=== PATIENT | male | born 1985 | race Caucasian/White ===

== ENCOUNTER 2018-11-19 22:27 | Emergency (ER) | payer SELFPAY ==
[2018-11-19] MEDS ORDERED: Sodium Chloride 0.9% 2.5 ML Syringe FLUSH PRN (22:29)
[2018-11-19] MEDS ORDERED: Sodium Chloride 0.9% 10 ML Syringe FLUSH PRN (22:29)
--- NOTE | 2018-11-19 22:32 | EDM.PDOC ---
ED HPI GENERAL MEDICAL PROBLEM - General Stated Complaint: PT HURT LT LEG Time Seen by Provider: 11/19/18 22:29 Source of Information: Reports: Patient History Limitations: Reports: No Limitations - History of Present Illness INITIAL COMMENTS - FREE TEXT/NARRATIVE: HISTORY AND PHYSICAL: History of present illness: Patient is a 32-year-old male who presents to the emergency room today with complaints of left ankle pain. He states prior to arrival he misstepped and and fell to the ground. Upon arrival there is noted to be an obvious deformity of the left ankle. He denies hitting his head or having any loss of consciousness. He reports that he has fractured this ankle previously Patient denies any fever , chills, headache, change in vision, syncope or near syncope. Denies any chest pain, back pain, shortness of breath or cough. Denies any GI or symptoms. Patient has been eating and drinking appropriately. Last ate or drank around 6 PM. Review of systems: As per history of present illness and below otherwise all systems reviewed and negative. Past medical history: As per history of present illness and as reviewed below otherwise noncontributory. Surgical history: As per history of present illness and as reviewed below otherwise noncontributory. Social history: See social history for further information Family history: As per history of present illness and as reviewed below otherwise noncontributory. Physical exam: General: Well developed and well nourished 32-year-old male. Alert and oriented. Nontoxic appearing and no acute distress. HEENT: Atraumatic, normocephalic, pupils equal and reactive bilaterally, negative for conjunctival pallor or scleral icterus, mucous membranes moist, trachea midline. No drooling or trismus noted. No meningeal signs. No hot potato voice noted. Lungs: Clear to auscultation, breath sounds equal bilaterally, chest nontender. Heart: S1S2, regular rate and rhythm without overt murmur Abdomen: Soft, nondistended, nontender. Negative for masses or hepatosplenomegaly. Negative for costovertebral tenderness. Pelvis: Stable nontender. C-spine/Back: No pinpoint vertebral tenderness upon palpation. No crepitus, step -offs or obvious deformities. Denies any urinary or fecal incontinence. Denies any numbness, tingling or saddle paresthesia. Skin: Abrasion noted to the medial left ankle. Otherwise skin is intact, warm, dry. No lesions or rashes noted. Extremities: Limited range of motion of the left ankle, unable to flex or extend. Strong pedal pulse. Capillary refill less than 3 seconds. Otherwise moves all other extremities per self without difficulty or deficits, negative for cords or calf pain. Neurovascular unremarkable. Neuro: Awake, alert, oriented. Cranial nerves II through XII unremarkable. Cerebellum unremarkable. Motor and sensory unremarkable throughout. Exam nonfocal. Notes: X-ray shows Comminuted, displaced fractures of the medial and lateral malleoli are noted. Lateral subluxation of the talar dome with the medial malleolar fragment is seen. There are several punctate density seen along the lateral distal calf. Dr Pradhan, [facility] Orthopedic provider, was consulted on this case. He states that this patient should have surgery right away in the morning. Patient will be transferred tonight and admitted through the emergency room. Dr. Ennis , ER physician was informed of this patient and is agreeable. Two-view fiberglass splint was applied. Patient continues to have strong pedal pulse post application. Vital signs remain stable. Patient was made aware of this and is agreeable to plan of care. Diagnostics: Ankle x-ray Therapeutics: NS, Morphine, posterior splint Impression: Comminuted displaced fracture of the medial and lateral malleoli, left Plan: Transferred to [facility] in [place] via ground EMS Definitive disposition and diagnosis as appropriate pending reevaluation and review of above. left ankle Pain Score (Numeric/FACES): 10 - Related Data Allergies Allergy/AdvReac Type Severity Reaction Status Date / Time No Known Allergies Allergy Verified 11/19/18 22:37 Home Meds: Home Meds . [No Known Home Meds] 11/19/18 [History] Review of Systems - Review of Systems Review Of Systems: ROS reveals no pertinent complaints other than HPI. ED EXAM, GENERAL - Physical Exam Exam: See Below (See dictation) Course - Vital Signs Last Recorded V/S: Last Vital Signs Temp 97 F 11/19/18 22:32 Pulse 107 H 11/19/18 22:32 Resp 18 11/19/18 22:32 BP 132/88 11/19/18 22:32 Pulse Ox 97 11/19/18 22:32 - Orders/Labs/Meds Orders: Active Orders 24 hr Category Date Time Status Vaccines to be Administered [RC] PER UNIT ROUTINE Care 11/19/18 22:57 Active Sodium Chloride 0.9% [Normal Saline] 1,000 ml Med 11/19/18 22:45 Active IV STAT Sodium Chloride 0.9% [Saline Flush] Med 11/19/18 22:29 Active 10 ml FLUSH ASDIRECTED PRN Sodium Chloride 0.9% [Saline Flush] Med 11/19/18 22:29 Active 2.5 ml FLUSH ASDIRECTED PRN Saline Lock Insert [OM.PC] Stat Oth 11/19/18 22:29 Ordered Medication Orders Sodium Chloride (Normal Saline) 1,000 mls @ 150 mls/hr IV STAT OLGA Last Admin: 11/19/18 22:53 Dose: 150 mls/hr Sodium Chloride (Saline Flush) 10 ml FLUSH ASDIRECTED PRN PRN Reason: Keep Vein Open Last Admin: 11/19/18 22:54 Dose: 10 ml Sodium Chloride (Saline Flush) 2.5 ml FLUSH ASDIRECTED PRN PRN Reason: Keep Vein Open Last Admin: 11/19/18 22:55 Dose: 2.5 ml Meds: Medications Generic Name Dose Route Start Last Admin Trade Name Freq PRN Reason Stop Dose Admin Sodium Chloride 1,000 mls @ 150 mls/hr 11/19/18 22:45 11/19/18 22:53 Normal Saline IV 150 mls/hr STAT OLGA Administration Sodium Chloride 10 ml 11/19/18 22:29 11/19/18 22:54 Saline Flush FLUSH 10 ml ASDIRECTED PRN Administration Keep Vein Open Sodium Chloride 2.5 ml 11/19/18 22:29 11/19/18 22:55 Saline Flush FLUSH 2.5 ml ASDIRECTED PRN Administration Keep Vein Open Discontinued Medications Generic Name Dose Route Start Last Admin Trade Name Freq PRN Reason Stop Dose Admin Diphtheria/Tetanus/Acell Pertussis 0.5 ml 11/19/18 22:57 Adacel IM 11/19/18 22:58 .ONCE ONE Morphine Sulfate 4 mg 11/19/18 22:35 11/19/18 22:54 Morphine IVPUSH 11/19/18 22:36 4 mg ONETIME ONE Administration Departure - Departure Time of Disposition: 23:22 Disposition: DC/Tfer to [facility] 02 Clinical Impression: Bimalleolar ankle fracture Qualifiers: Encounter type: initial encounter Fracture type: closed Laterality: left Qualified Code(s): S82.842A - Displaced bimalleolar fracture of left lower leg, initial encounter for closed fracture - Discharge Information Referrals: PCP,None [Primary Care Provider] - - My Orders Last 24 Hours: My Active Orders 11/19/18 22:29 Sodium Chloride 0.9% [Saline Flush] 10 ml FLUSH ASDIRECTED PRN Sodium Chloride 0.9% [Saline Flush] 2.5 ml FLUSH ASDIRECTED PRN Saline Lock Insert [OM.PC] Stat 11/19/18 22:45 Sodium Chloride 0.9% [Normal Saline] 1,000 ml IV STAT 11/19/18 22:57 Vaccines to be Administered [RC] PER UNIT ROUTINE - Assessment/Plan Last 24 Hours: My Active Orders 11/19/18 22:29 Sodium Chloride 0.9% [Saline Flush] 10 ml FLUSH ASDIRECTED PRN Sodium Chloride 0.9% [Saline Flush] 2.5 ml FLUSH ASDIRECTED PRN Saline Lock Insert [OM.PC] Stat 11/19/18 22:45 Sodium Chloride 0.9% [Normal Saline] 1,000 ml IV STAT 11/19/18 22:57 Vaccines to be Administered [RC] PER UNIT ROUTINE
[2018-11-19] MEDS ORDERED: Morphine 4 MG/ML Syringe IVPUSH ONE (22:35)
[2018-11-19] MEDS ORDERED: Sodium Chloride 0.9% 1,000 ML IV SCH (22:45)
[2018-11-19] MEDS ORDERED: Diphtheria,Pertussis(Acell),Tetanus Vaccine 0.5 ML Syringe IM ONE (22:57)
--- NOTE | 2018-11-19 23:09 | CR ---
INDICATION: Ankle injury TECHNIQUE: Ankle radiograph 4 views left COMPARISON: None FINDINGS: Bone: Comminuted, displaced fractures of the medial and lateral malleoli are noted. Lateral subluxation of the talar dome with the medial malleolar fragment is seen. Joint: See above. No significant ankle effusion is seen. Soft tissue: Mild lateral soft tissue swelling is noted. No radiopaque foreign bodies are seen. There are several punctate density seen along the lateral distal calf. IMPRESSIONS: 1. Comminuted, displaced fractures of the medial and lateral malleoli are noted. Lateral subluxation of the talar dome with the medial malleolar fragment is seen. 2. There are several punctate density seen along the lateral distal calf. Correlation with physical exam is recommended to exclude foreign bodies. Dictated by Paramjit Mcelroy MD @ 11/19/2018 11:04:21 PM Dictated by: Paramjit Mcelroy MD @ 11/19/2018 23:08:39 (Electronically Signed)
[2018-11-19 23:48] LABS: BLOOD UREA NITROGEN,BUN 10 mg/dL (7.0-18.0); CARBON DIOXIDE,CO2 21.4 mmol/L (21.0-32.0); CHLORIDE,CL 105 mmol/L (98-107); GLUCOSE RANDOM 139 mg/dL (74-106); POTASSIUM,K 3.6 mmol/L (3.5-5.1); SODIUM,NA 143 mmol/L (136-148)
[2018-11-20] MEDS ORDERED: Morphine 4 MG/ML Syringe IVPUSH ONE (01:04)
[2018-11-20] MEDS ORDERED: Morphine 4 MG/ML Syringe ONE (01:06)
[2018-11-20] MEDS ORDERED: Sodium Chloride 0.9% 1,000 ML IV SCH (02:45)
[2018-11-20] MEDS ORDERED: Morphine 2 MG/ML Syringe IVPUSH ONE (03:12)
== END 2018-11-20 05:08 ==
LOC: MW.ED 22:27
DX: S82.842A Displaced bimalleolar fracture of left lower leg, initial encounter for closed fracture (principal); Z23 Encounter for immunization; W10.8XXA Fall (on) (from) other stairs and steps, initial encounter
CPT/HCPCS: 29515; 36415; 73610; 80053; 85025; 90471; 90715; 96361; 96374; 96376; 99284; J2270; J7040